=== PATIENT | male | born 1975 | race Two or more races ===

== ENCOUNTER 2023-08-03 12:02 | Day surgery (SDC) | payer OTHER ==
[~2023-08-03] VITALS: Ht 190.5 cm; Wt 163.3 kg
[2023-08-03] VITALS (8 sets, daily range): BP systolic 137–165; BP diastolic 89–106; PULSE 71–78; RESP 14–23; TEMP 98.4; O2SAT 93–99
[~2023-08-03 12:02] MED LIST: ACET325T66 PO; ATOR40TA71 PO; CAPS42.514 TOP; IBUP-1985 PO; LISI5TAB22 PO; METF-437 PO; ceFAZolin inj. 3,000 MG in normal saline 100ml IV soln 100 ML IV ONE; famotidine 20mg tablet PO ONE; ringers solution, lacted 1,000 ML IV SCH
[2023-08-03] MEDS ORDERED: sevoflurane 250ml liquid IH ONE (15:42)
[2023-08-03] MEDS ORDERED: fentaNYL/PF 50MCG/1 ML 2ML syringe ONE (15:45)
[2023-08-03] MEDS ORDERED: midazolam 1 mg/ML 2ml injection ONE (15:46)
[2023-08-03] MEDS ORDERED: rocuronium 10mg/ml inj IV ONE (15:46)
[2023-08-03] MEDS ORDERED: propofol inj 20 ML IV ONE (15:46)
[2023-08-03] MEDS ORDERED: BUPIVAcaine/PF 2.5mg/ml (0.25%) 10ml vial ONE (16:01)
[2023-08-03] MEDS ORDERED: acetaminophen 1,000mg/100ml IV 100 ML IV ONE (16:31)
[2023-08-03] MEDS ORDERED: morphine 2 MG/ML inj. syringe IV PRN (16:45)
[2023-08-03] MEDS ORDERED: proCHLORperazine 10 MG/2 ml inj IV PRN (16:45)
[2023-08-03] MEDS ORDERED: ondansetron/PF 4mg/2ml inj IV PRN (16:45)
[2023-08-03] MEDS ORDERED: morphine 4 MG/ML inj SYRINge IV PRN (16:45)
[2023-08-03] MEDS ORDERED: ringers solution, lacted 1,000 ML IV SCH (16:45)
[2023-08-03] MEDS ORDERED: meperidine/PF 25mg/ml syringe IV PRN ×2 (16:45)
[2023-08-03] MEDS ORDERED: sugammadex 200mg/2ml injection IV ONE (17:29)
--- NOTE | 2023-08-03 17:44 | NUR ---
Received from OR via [facility] , accompanied by Anesthesiologist LETTY and report given by Anesthesiolgist. PATIENT WITH 20G PIV IN LEFT UE RUNNING LR AT 100. RIGHT UE IN SLING AND + RADIAL PULSE PRESENT. ANTERIOR 3 LAP SITES PRESENT THAT ARE CDI. Addendum: 08/03/23 at 1757 by Sony Germain RN, RN Amended: Links added.
[2023-08-03] MEDS ORDERED: BUPIVAcaine/PF 2.5 mg/ml (0.25%) 30ml vial IJ ONE (18:05)
[2023-08-03] MEDS: meperidine/PF 25mg/ml syringe IV PRN ×2 (18:21→18:33)
--- NOTE | 2023-08-03 18:54 | NUR ---
ABLE TO SAFELY AMBULATE AND TRANSFER SELF. IV TAKEN OUT WITHOUT ANY COMPLICATIONS. ALL DISCHARGE INSTRUCTIONS COVERED WITH PATIENT AND ALL QUESTIONS ANSWERED. PATIENT TAKEN OUT VIA WHEELCHAIR TO PERSONAL VEHICLE WHERE FAMILY/FRIEND DROVE PATIENT HOME. RFS SENT WITH 2 GUARDS AND TAKEN TO THE TRANSPORT VAN AND TAKEN HOME. Addendum: 08/03/23 at 1909 by Sony Germain RN, RN Amended: Links added.
== END 2023-08-03 19:12 ==
LOC: PAS 12:02 → EEVIPCON 15:45 → PAS 19:12
PROVIDERS: ATTEND Orthopaedic Surgery
DX: M19.011 Primary osteoarthritis, right shoulder (principal); M75.41 Impingement syndrome of right shoulder; E11.9 Type 2 diabetes mellitus without complications; I10 Essential (primary) hypertension; E78.5 Hyperlipidemia, unspecified; E66.9 Obesity, unspecified; Z68.42 Body mass index [BMI] 45.0-49.9, adult; Z90.49 Acquired absence of other specified parts of digestive tract; Z98.890 Other specified postprocedural states; Z87.891 Personal history of nicotine dependence; Z79.899 Other long term (current) drug therapy; Z79.84 Long term (current) use of oral hypoglycemic drugs
CPT/HCPCS: 29824; 29826; 82948; 93005; J0131; J0690; J2175; J2250; J2270; J2704; J3010; J3490; J7030; J7120; Z7506; Z7508; Z7512; A4215; A4565; A4618; A7000

== ENCOUNTER 2023-12-14 09:59 | Day surgery (SDC) | payer OTHER ==
[~2023-12-14] VITALS: Ht 188 cm; Wt 164.4 kg
[2023-12-14] VITALS (12 sets, daily range): BP systolic 129–156; BP diastolic 78–104; PULSE 67–84; RESP 14–28; TEMP 97.4; O2SAT 93–100
[~2023-12-14 09:59] MED LIST changes: -ceFAZolin inj. 3,000 MG in normal saline 100ml IV soln 100 ML IV ONE; -famotidine 20mg tablet PO ONE; -ringers solution, lacted 1,000 ML IV SCH
[2023-12-14] MEDS: vancomycin 1,500 MG in NS 300ml IV soln IV ONE (10:46)
[2023-12-14] MEDS: ringers solution, lacted 1,000 ML IV SCH ×2 (10:46→15:37)
[2023-12-14] MEDS: famotidine 20mg tablet PO ONE (10:46)
[2023-12-14] MEDS: cefazolin 2gm/D5W 100mL 100 ML IV ONE (10:46)
[2023-12-14] MEDS ORDERED: epiNEPHrine 1 mg/ml 30ml MDV ONE (11:38)
[2023-12-14] MEDS ORDERED: sevoflurane 250ml liquid IH ONE (12:41)
[2023-12-14] MEDS ORDERED: midazolam 1 mg/ML 2ml injection ONE ×2 (12:44)
[2023-12-14] MEDS ORDERED: fentaNYL /PF 50mcg/ml 5ml ampule ONE (12:44)
[2023-12-14] MEDS ORDERED: meperidine/PF 25mg/ml syringe IV PRN ×2 (13:45)
[2023-12-14] MEDS ORDERED: morphine 2 MG/ML inj. syringe IV PRN (13:45)
[2023-12-14] MEDS ORDERED: ondansetron/PF 4mg/2ml inj IV PRN (13:45)
[2023-12-14] MEDS ORDERED: proCHLORperazine 10 MG/2 ml inj IV PRN (13:45)
[2023-12-14] MEDS ORDERED: morphine 4 MG/ML inj SYRINge IV PRN (13:45)
[2023-12-14] MEDS: epiNEPHrine 1 mg/ml inj ONE (13:53)
[2023-12-14] MEDS ORDERED: labetalol 20mg/4ml (5mg/ml) syringe IV ONE (13:58)
[2023-12-14] MEDS ORDERED: propofol inj 20 ML IV ONE (13:59)
[2023-12-14] MEDS ORDERED: rocuronium 10mg/ml inj IV ONE (13:59)
[2023-12-14] MEDS: BUPIVAcaine/PF 2.5mg/ml (0.25%) 10ml vial ONE (14:08)
[2023-12-14] MEDS ORDERED: epiNEPHrine 1 mg/ml inj ONE ×2 (14:11→14:50)
[2023-12-14] MEDS ORDERED: neostigmine methylsulfate 1 MG/ML 10ml vial ONE (15:07)
[2023-12-14] MEDS ORDERED: glycopyrrolate 0.2mg/ml inj ONE (15:07)
[2023-12-14] MEDS ORDERED: fentaNYL/PF 50MCG/1 ML 2ML syringe ONE (15:16)
[2023-12-14] MEDS: ketorolac trometh. 30mg/ml inj. IV ONE (15:45)
[2023-12-14] MEDS: HYDROcodone/acetaminophen 10/325mg tab PO ONE (16:09)
[2023-12-14] MEDS: meperidine/PF 25mg/ml syringe IV PRN (16:23)
== END 2023-12-14 16:58 ==
LOC: PAS 09:59 → EEVIPCON 12:00 → PAS 16:58
PROVIDERS: ATTEND Orthopaedic Surgery
DX: S43.432A Superior glenoid labrum lesion of left shoulder, initial encounter (principal); M19.012 Primary osteoarthritis, left shoulder; I10 Essential (primary) hypertension; E11.9 Type 2 diabetes mellitus without complications; E66.9 Obesity, unspecified; Z79.1 Long term (current) use of non-steroidal anti-inflammatories (NSAID); Z79.4 Long term (current) use of insulin; Z79.899 Other long term (current) drug therapy; Z90.49 Acquired absence of other specified parts of digestive tract; Z98.890 Other specified postprocedural states; Z68.42 Body mass index [BMI] 45.0-49.9, adult; X58.XXXA Exposure to other specified factors, initial encounter; Y93.89 Activity, other specified; Y92.89 Other specified places as the place of occurrence of the external cause; Y99.8 Other external cause status
CPT/HCPCS: 29822; 29824; 82948; J0171; J0690; J1885; J2175; J2250; J2704; J2710; J3010; J3370; J3490; J7120; Z7506; Z7508; Z7512; A4215; A4565; A4618; A6253; A6258; A6449; A7000